=== PATIENT | male | born 1975 | race Caucasian/White ===

== ENCOUNTER 2016-11-24 19:48 | Emergency (ER) | payer MEDICAID, OTHER ==
[2016-11-24 19:58] VITALS: BP 136/74
[2016-11-24] MEDS ORDERED: diphenhydrAMINE HCL/ZINC ACET 28.3 APPL TUBE TP PRN (20:11)
[2016-11-24] MEDS ORDERED: diphenhydrAMINE HCL 50 MG CAPSULE PO ONE ×2 (20:11→20:21)
--- NOTE | 2016-11-24 20:36 | ERNOTE ---
Integumentary HPI - Narrative Date of Service: 11/24/16 - General Presenting Symptoms: rash Time Seen by Provider: 11/24/16 20:07 - Immun/Allergies/Home Medications Immunizations: IMMUNIZATION HX Immunizations Up to Date Yes Allergies/Adverse Reactions: Allergies Allergy/AdvReac Type Severity Reaction Status Date / Time aspirin [From [facility]] Allergy Verified 01/29/15 19:16 citric acid Allergy Verified 01/29/15 19:16 [From [facility]] sodium bicarbonate Allergy Verified 01/29/15 19:16 [From [facility]] codeine AdvReac Nausea Verified 01/29/15 19:16 Home Medications: HOME MEDICATIONS Amitriptyline HCl 250 mg PO DAILY 11/24/16 [Last Taken Unknown] Clonidine HCl [Catapres] 0.1 mg PO BID 11/24/16 [Last Taken Unknown] Lamotrigine [Lamictal] 100 mg PO DAILY 11/24/16 [Last Taken Unknown] Lindane 1 appl TP Q7D #60 ml 11/24/16 [Last Taken Unknown] Lindane [Lindane Shampoo] 1 appl TP Q7D #120 ml 11/24/16 [Last Taken Unknown] OLANZapine [Olanzapine] 17.5 mg PO DAILY 11/24/16 [Last Taken Unknown] - History of Present Illness Narrative: Has had a rash that developed two weeks ago along his forearms. It had spread and now is over his trunk, lower legs. It is puritic, and has intensified. Did not see a provider. Has tried multiple OTC anti-itch remedies without success. Quality: Reports: itching Severity: moderate, severe Review of Systems - Review of Systems Constitutional: Present: no symptoms reported EYE: Present: no symptoms reported ENT: Present: no symptoms reported Respiratory: Present: no symptoms reported Cardiology: Present: no symptoms reported Gastrointestinal/Abdominal: Present: no symptoms reported - Patient's Past Medical History Patient History - Medical: Bipolar, Other Patient History - Cardiac/Respiratory: No pertinent hx Patient History - Cancer: No Hx of Cancer Patient History - Surgical Procedures: No surgical history Patient History - Other: None - Social History Living Situations: significant other Abuse History: No History of abuse Psych History: Hx of Bipolar Disorder, Current tx/ever been on anti-depressants or anti-anxiety meds Smoking Status: Current every day smoker Have you smoked in the past 12 months: Yes Do you dip or chew tobacco: No Alcohol Use: none Drug Use: none - Immunizations Immunizations Up to Date: Yes Physical Exam - Physical Exam General Appearance: Present: wd/wn, alert, no apparent distress, other - Poor general hygiene Eye Exam: Normal inspection: bilateral Ears, Nose, Throat: Present: normal ENT inspection Respiratory: Present: no respiratory distress Cardiovascular/Chest: Present: regular rate, rhythm Skin Exam: Present: other - Diffuse macula-papular rash in clusters over arms, anterioir trunk, lower legs. Lesions with scabbed domes and surrounding halo of erythemia. No infectations seen. ED Progress - Vital Signs Vital Signs: Vital Signs 11/24/16 19:52 Temperature 37.2 C Pulse Rate 88 Respiratory 16 Rate Blood Pressure 136/74 O2 Sat by Pulse 97 Oximetry - Progress/Reassessment Chief Complaint: Rash Plan - Plan Plan: Remove all bedding and towels. Launder completely Use topical benadryl lotion Use benadryl 25 mg three times a day Use pepcid 20 mg daily. Departure Clinical Impression: Infestation by bed bug - Departure Disposition: Home self-care Condition: Fair Instructions: Rash, [id number] Additional Instructions: Remove all bedding and towels. Launder. Have home dis-infected. Use OTC benadryl 25 mg three times a day, Pepcid 20 mg daily, Benadryl cream over rash. Follow up with PCP Prescriptions: Lindane 1 appl TP Q7D #60 ml Lindane [Lindane Shampoo] 1 appl TP Q7D #120 ml
== END 2016-11-24 20:41 | disposition home or self-care (01) ==
LOC: ER 19:48
DX: S40.862A Insect bite (nonvenomous) of left upper arm, initial encounter (principal); S40.861A Insect bite (nonvenomous) of right upper arm, initial encounter; S20.369A Insect bite (nonvenomous) of unspecified front wall of thorax, initial encounter; S80.862A Insect bite (nonvenomous), left lower leg, initial encounter; S80.861A Insect bite (nonvenomous), right lower leg, initial encounter; Z72.0 Tobacco use; F31.70 Bipolar disorder, currently in remission, most recent episode unspecified

== ENCOUNTER 2016-12-14 13:56 | Emergency (ER) | payer OTHER ==
[2016-12-14 14:28] VITALS: BP 115/77
[2016-12-14] MEDS ORDERED: KETOROLAC TROMETHAMINE 60 MG/2 ML VIAL IM ONE ×2 (14:41→14:52)
--- NOTE | 2016-12-14 14:47 | ERNOTE ---
Upper Extremity HPI - Narrative Date of Service: 12/14/16 - General Extremities Pain Location: shoulder: left Time Seen by Provider: 12/14/16 14:38 Source: patient Exam Limitations: no limitations - Immun/Allergies/Home Medications Immunizations: IMMUNIZATION HX Immunizations Up to Date Yes History of Influenza Vaccine No Allergies/Adverse Reactions: Allergies Allergy/AdvReac Type Severity Reaction Status Date / Time aspirin [From [facility]] Allergy Verified 12/14/16 14:30 citric acid Allergy Verified 12/14/16 14:30 [From [facility]] sodium bicarbonate Allergy Verified 12/14/16 14:30 [From [facility]] codeine AdvReac Nausea Verified 12/14/16 14:30 Home Medications: HOME MEDICATIONS Amitriptyline HCl 250 mg PO DAILY 11/24/16 [Last Taken Unknown] Clonidine HCl [Catapres] 0.1 mg PO BID 11/24/16 [Last Taken Unknown] Lamotrigine [Lamictal] 100 mg PO DAILY 11/24/16 [Last Taken Unknown] OLANZapine [Olanzapine] 17.5 mg PO DAILY 11/24/16 [Last Taken Unknown] - History of Present Illness Narrative: Pt. comes in with c/o L shoulder pain after he was lifting boxes just prior to arrival and felt sudden pain. Pt. states that the pain is causing him to not be able to lift his L arm. Pt. denies any prehospital treatment or alleviating factors but states that movement exacerbates the pain and that he has had rotator cuff surgery in the past on this shoulder that felt similar. Review of Systems - Review of Systems Constitutional: Present: no symptoms reported. Absent: recent illness, fever, chills, weakness, fatigue, malaise EYE: Present: no symptoms reported ENT: Present: no symptoms reported Respiratory: Present: no symptoms reported. Absent: shortness of breath, cough , wheezing Cardiology: Present: no symptoms reported. Absent: chest pain, palpitations, edema Gastrointestinal/Abdominal: Present: no symptoms reported Genitourinary: Present: no symptoms reported Musculoskeletal: Present: joint pain - L shoulder Skin: Present: no symptoms reported. Absent: rash, dryness, change in color Neurological: Present: no symptoms reported. Absent: headache, dizziness/light- headedness, numbness, tingling All Other Systems: All systems neg except as marked - Patient's Past Medical History Patient History - Medical: Bipolar Patient History - Cardiac/Respiratory: No pertinent hx Patient History - Cancer: No Hx of Cancer Patient History - Surgical Procedures: No surgical history Patient History - Other: None - Family History Noncontributory Family History - Medical: No pertinent hx - Social History Living Situations: significant other Abuse History: No History of abuse Psych History: Hx of Bipolar Disorder, Current tx/ever been on anti-depressants or anti-anxiety meds Smoking Status: Current every day smoker Have you smoked in the past 12 months: Yes Alcohol Use: none Drug Use: none - Immunizations Immunizations Up to Date: Yes History of Influenza Vaccine: No Physical Exam - Physical Exam General Appearance: Present: wd/wn, alert, no apparent distress Eye Exam: Normal inspection: bilateral, PERRL: bilateral, EOMI: bilateral Neck: Present: normal inspection, nontender. Absent: lymphadenopathy (R), lymphadenopathy (L) Respiratory: Present: no respiratory distress, normal breath sounds, no accessory muscle use, chest nontender, lungs clear Cardiovascular/Chest: Present: regular rate, rhythm, no murmur, normal peripheral pulses Gastrointestinal/Abdominal: Present: normal bowel sounds, nontender Back Exam: Present: normal inspection, normal range of motion, no CVA tenderness , no vertebral tenderness Extremity Exam: Present: decreased range of motion - L shoulder, other - beer can test positive Neurological Exam: Present: alert, oriented, normal mood/affect, no motor/ sensory deficits Skin Exam: Present: normal color, warm/dry ED Progress - Vital Signs Patient's Vital Signs:: I have reviewed the patient's vital signs. Vital Signs: Vital Signs 12/14/16 14:26 Temperature 37.1 C Pulse Rate 103 H Blood Pressure 115/77 - X-Ray X-Ray #1 X-Ray: shoulder Interpretation: Interp. by me X-ray Comments: no obvious ossious abnormalities - Progress/Reassessment Chief Complaint: Shoulder Injury/Pain Departure Clinical Impression: Rotator cuff arthropathy Qualifiers: Laterality: left Qualified Code(s): M12.812 - Other specific arthropathies, not elsewhere classified, left shoulder - Departure Disposition: Home self-care Condition: Good Instructions: Rotator Cuff Tendinitis, Form - Excuse from Work, School, or Physical Activity Additional Instructions: Please take Ibuprofen 600mg every 6 hours for pain and wear immobilizer at all times. Please follow up with orthopedics by getting first available appointment by calling office tomorrow morning. Referrals: Colin Lemus, PAC [[facility]] -
== END 2016-12-14 15:28 | disposition home or self-care (01) ==
LOC: ER 13:56
PROC: 2W3BX3Z Immobilization of Left Upper Arm using Brace (ICD-10-PCS; principal; 2016-12-14)
DX: M12.812 Other specific arthropathies, not elsewhere classified, left shoulder (principal); X50.0XXA Overexertion from strenuous movement or load, initial encounter; Y93.9 Activity, unspecified; Y92.9 Unspecified place or not applicable; F31.70 Bipolar disorder, currently in remission, most recent episode unspecified; Z72.0 Tobacco use